=== PATIENT | female | born 1955 | race Caucasian/White ===

== ENCOUNTER 2017-09-15 13:51 | Outpatient (CLI) | payer MEDICAID ==
--- NOTE | 2017-09-15 15:06 | XRAY Report ---
LEFT HIP AND PELVIS: 09/15/2017 CLINICAL INDICATION: Pain. COMPARISON: 07/20/2015. FINDINGS: Frontal view of the hips and pelvis and frogleg lateral view of the left hip demonstrate a left hip replacement in place. There is no evidence of fracture or dislocation. No hardware complication is seen. IMPRESSION: STABLE APPEARANCE OF LEFT HIP REPLACEMENT. NO EVIDENCE OF FRACTURE OR HARDWARE COMPLICATION. TD: 09/15/2017 15:05
== END 2017-09-15 13:52 | disposition home or self-care (01) ==
LOC: DI.N 13:51
PROVIDERS: ATTEND Family Medicine
DX: M25.552 Pain in left hip (principal); Z96.642 Presence of left artificial hip joint

== ENCOUNTER 2018-09-15 10:06 | Emergency (ER) | payer MEDICAID ==
[2018-09-15 10:22] VITALS: BP 102/51
[2018-09-15] MEDS ORDERED: DEXAMETHASONE 10 MG/ML VIAL PO STA (11:47)
--- NOTE | 2018-09-15 11:49 | ED Physician Documentation ---
PD HPI URI - Stated complaint Stated Complaint: R EAR PAIN - Chief complaint Chief Complaint: Heent - History obtained from History obtained from: Patient - History of Present Illness Timing - onset: How many days ago (4) Timing duration: Days (4) Timing details: Gradual onset, Still present Associated symptoms: Fever, Chills, Ear pain, Nasal congestion, Rhinorrhea, Sinus pain, Dry cough Contributing factors: Sick contact Improves by: Rest, Medication Similar symptoms before: Diagnosis (sinusitis) Recently seen: Not recently seen - Additional information Additional information: 63-year-old female with a history of cerebral palsy has developed a cough and congestion she developed pain in the right maxillary sinus and pain in the right ear. She is had a little bit of a sore throat she is lost her voice. Review of Systems Constitutional: reports: Fever, Chills Eyes: denies: Decreased vision Ears: reports: Ear pain Nose: reports: Rhinorrhea / runny nose, Congestion, Sinus pressure / pain Throat: reports: Sore throat Cardiac: denies: Chest pain / pressure, Palpitations Respiratory: reports: Cough. 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 : None HEENT: None Psych: None Musculoskeletal: Other - Past Surgical History Past Surgical History: Yes Ortho: Hip replacement - Present Medications Home Medications: Ambulatory Orders Medication Instructions Recorded Confirmed Lidocaine Patch 5% [Lidoderm Patch] 1 patch TOP DAILY PRN #10 patch 06/25/16 06/26/16 oxyCODONE [Roxicodone] 5 mg PO Q4-6H PRN #7 tablet 06/25/16 06/26/16 Muscle Relaxer 06/26/16 diazePAM [Valium] 5 mg PO TID PRN #12 tablet 06/26/16 Amox/Clav 875/125 [Augmentin] 1 each PO Q12H #20 tablet 09/15/18 - Allergies Allergies/Adverse Reactions: Allergies Allergy/AdvReac Type Severity Reaction Status Date / Time codeine AdvReac Nausea Verified 01/28/14 09:14 - Social History Does the pt smoke?: No Smoking Status: Never smoker Does the pt drink ETOH?: No Does the pt have substance abuse?: No - Immunizations Immunizations are current?: Yes PD ED PE NORMAL - General General: Alert and oriented X 3, No acute distress, Well developed/nourished - HEENT HEENT: Atraumatic, PERRL, EOMI, Other (right TM is minimally centrally inflamed and the pharynx is with mild inflamation bilat. There is maxillary sinus point tenderness on the right side as the most dominant feature. ) - Neck Neck: Supple, no meningeal sign, No bony TTP - Cardiac Cardiac: RRR, No murmur - Respiratory Respiratory: No respiratory distress, Clear bilaterally - Abdomen Abdomen: Soft, Non tender - Derm Derm: Normal color, Warm and dry, No rash - Extremities Extremities: No deformity, No edema - Neuro Neuro: No motor deficit, No sensory deficit Eye Opening: Spontaneous Motor: Obeys Commands Verbal: Oriented GCS Score: 15 - Psych Psych: Normal mood, Normal affect Results - Vitals Vitals: Vital Signs - 24 hr 09/15/18 10:18 Temperature 36.7 C Heart Rate 117 H Respiratory 18 Rate Blood Pressure 102/51 L O2 Saturation 98 Oxygen O2 Source Room air PD MEDICAL DECISION MAKING - ED course Complexity details: considered differential, d/w patient ED course: 63-year-old female with cough and congestion has right maxillary sinusitis and she is administered dexamethasone 10 mg orally and we will put her on some Augmentin. Departure - Departure Disposition: 01 Home, Self Care Clinical Impression: Sinusitis Qualifiers: Sinusitis location: maxillary Chronicity: acute Recurrence: not specified as recurrent Qualified Code(s): J01.00 - Acute maxillary sinusitis, unspecified Condition: Stable Instructions: ED Sinusitis Abx Tx Follow-Up: Tien Ramon MD [Primary Care Provider] - Prescriptions: Amox/Clav 875/125 [Augmentin] 1 each PO Q12H #20 tablet
[2018-09-15] MEDS ORDERED: CHERRY SYRUP 10 ML UDC PO ONE (12:01)
== END 2018-09-15 12:01 | disposition home or self-care (01) ==
LOC: ED 10:06
DX: J01.00 Acute maxillary sinusitis, unspecified (principal); G80.9 Cerebral palsy, unspecified; Z96.649 Presence of unspecified artificial hip joint
CPT/HCPCS: 99283; A9270

== ENCOUNTER 2020-04-10 10:17 | Outpatient (CLI) | payer MEDICAID ==
--- NOTE | 2020-04-10 17:16 | XRAY Report ---
PROCEDURE: Hip BILAT INDICATIONS: BILATERAL HIP PAIN TECHNIQUE: 2 views of the right hip and left hip were acquired. COMPARISON: 07/20/2015. FINDINGS: Bones: Postsurgical changes compatible with left hip arthroplasty are stable compared to the prior e xam. Mild right hip osteoarthritic degenerative changes. No fractures or dislocations. No suspicious bony lesions. The visualized pelvic ring appears intact. Soft tissues: No suspicious soft tissue calcifications or masses. IMPRESSION: 1. No fracture. No acute osseous lesion. If there is continued clinical concern for pathology, then r epeat plain film radiographs (7-10 days) or advanced imaging (CT, MR, bone scan) should be considered for further evaluation.. 2. Status post left hip arthroplasty. 3. Mild right hip osteoarthritis. Reviewed by: Michelle Marshall MD, PhD on 04/10/2020 5:14 PM PDT Approved by: Michelle Marshall MD, PhD on 04/10/2020 5:14 PM PDT Station ID: [id number]
== END 2020-04-10 10:18 | disposition home or self-care (01) ==
LOC: DI.WCP 10:17
PROVIDERS: ATTEND Orthopaedic Surgery
DX: M16.11 Unilateral primary osteoarthritis, right hip (principal); Z96.642 Presence of left artificial hip joint
CPT/HCPCS: 73521

== ENCOUNTER 2020-04-14 12:55 | Outpatient (CLI) | payer MEDICAID ==
--- NOTE | 2020-04-15 09:54 | Mammography Report ---
BILATERAL DIGITAL SCREENING MAMMOGRAM: 04/14/2020 CLINICAL: Routine screening. Comparison is made to exam dated: 07/08/2014 mammogram - [facility]. The tissue o f both breasts is extremely dense, which lowers the sensitivity of mammography. No significant masses, calcifications, or other findings are seen in either breast. There has been no significant interval change. IMPRESSION: NEGATIVE There is no mammographic evidence of malignancy. A 1 year screening mammogram is recommended. This exam was interpreted at Station ID: [id number]. NOTE: For mammograms, a report in lay terms will be sent to the patient. Approximately 15% of breast malignancies will not be visualized mammographically. In the management of a palpable breast mass, a negative mammogram must not discourage biopsy of a clinically suspicious lesion. Electronically Signed By: Francesco diggs/zoila:04/14/2020 15:23:04 ACR BI-RADS Category 1: Negative 3341F PARENCHYMAL PATTERN: (VD) - The breast(s) demonstrate(s) extremely dense parenchyma, limiting the sen sitivity of mammography. BI-RADS CATEGORY: (1) - 1 RECOMMENDATION: (ANNUAL) - Recommend routine annual screening mammography. [id number] 1 year screening LATERALITY: (B)
== END 2020-04-14 12:56 | disposition home or self-care (01) ==
LOC: DI.N 12:55
DX: Z12.31 Encounter for screening mammogram for malignant neoplasm of breast (principal)
CPT/HCPCS: 77067

== ENCOUNTER 2020-07-06 12:42 | Outpatient (CLI) | payer MEDICARE, MEDICAID ==
--- NOTE | 2020-07-06 14:20 | MRI Report ---
PROCEDURE: Cervical Spine W/O INDICATIONS: SPASTIC GAIT TECHNIQUE: Noncontrast sagittal T1 spin echo and T2 fast spin echo, sagittal STIR, foraminal oblique sagittal T2 fast spin echo, and axial gradient echo or T2 fast spin echo through the cervical spine. COMPARISON: None. FINDINGS: Image quality: Degraded by severe motion artifact. Alignment and Curvature: Straightening of the normal lordotic curvature. Grade 1 anterolisthesis of C7 on T1 and T1 on T2 . Bone Marrow: Straightening of the normal lordotic curvature. Chronic osseous fusion of the C4, C5 an d C6 vertebral bodies. Scattered multilevel endplate spurring and diffuse facet arthropathy. Spinal Cord: Visualized spinal cord has normal size and signal. No cerebellar tonsillar herniation. Paraspinous Soft Tissues: No paravertebral masses. Prevertebral soft tissues are normal in thicknes s. C2-C3: Mild canal narrowing severe right foraminal stenosis with nerve root compression. Severe left foraminal stenosis with nerve root is not well visualized. Cannot exclude nerve root compression. C3-C4: Moderate to severe canal narrowing. Severe bilateral foraminal stenoses with nerve root comp ression. C4-C5: Mild canal narrowing although evaluation limited by motion artifact. Mild bilateral foraminal stenoses. C5-C6: Mild canal narrowing. Moderate left foraminal stenosis with nerve root compression. Mild righ t foraminal narrowing C6-C7: Mild canal narrowing severe bilateral foraminal stenoses with nerve root compression. C7-T1: Mild canal narrowing. Moderate to severe bilateral foraminal stenoses with nerve root dee barak IMPRESSION: Cervical spondylosis, and chronic osseous fusion of the C4-C6 vertebral bodies. Multilevel spondyloli stheses as above Moderate to severe C3-C4 canal narrowing. Diffuse bilateral foraminal stenoses as detailed by spinal level. Reviewed by: Bradley Hwang MD on 07/06/2020 2:18 PM PST Approved by: Bradley Hwang MD on 07/06/2020 2:18 PM PST Station ID: [id number]
== END 2020-07-06 12:43 | disposition home or self-care (01) ==
LOC: DI 12:42
PROVIDERS: ATTEND Psychiatry & Neurology Neurology
DX: R26.1 Paralytic gait (principal); M47.812 Spondylosis without myelopathy or radiculopathy, cervical region; M43.12 Spondylolisthesis, cervical region; M48.02 Spinal stenosis, cervical region
CPT/HCPCS: 72141

== ENCOUNTER 2020-09-07 11:56 | Outpatient (CLI) | payer MEDICARE, MEDICAID ==
[2020-09-07 12:33] LABS: CREATININE 0.7 mg/dL (0.4-1.0)
[2020-09-07] MEDS ORDERED: IOVERSOL 320 100 ML VIAL IVP ONE ×2 (12:42→14:11)
--- NOTE | 2020-09-07 15:52 | CT Report ---
PROCEDURE: ANGIO NECK W INDICATIONS: CERVICAL STENOSIS OF SPINAL CANAL CONTRAST: IV CONTRAST: Optiray 320 ml: 80 PO CONTRAST: *NO PO CONTRAST TECHNIQUE: After the administration of intravenous contrast, 1.5 mm axial sections acquired from the aortic arch to the [place]. Coronal 3-D maximum intensity projection (MIP) and/or volume rendering ref ormats were then performed. For radiation dose reduction, the following was used: automated exposur e control, adjustment of mA and/or kV according to patient size. COMPARISON: MRI cervical spine 06/28/2020 FINDINGS: Image quality: Excellent. The origins of the left and right common, internal and external carotid arteries demonstrate no areas of hemodynamically significant stenosis, vascular occlusion or aneurysmal dilation. Origin of the le ft vertebral artery and right vertebral artery demonstrate no areas of hemodynamically significant st enosis, vascular occlusion or aneurysmal dilation. Aortic arch demonstrates conventional anatomy. Wray ited, visualized portions of the subclavian vasculature are unremarkable. Bony fusion is present at C4-C6. There is grade 1 anterolisthesis of C6 on C7, C7 on T1. There is sev ere disc space narrowing at C3-4 with reactive endplate changes. Similar appearance is also noted at C7-T1, T1 and T2 as well as moderate at C6-7. There is multilevel spinal stenosis moderate to severe at C3-4, T1-T2, mild at C6-7, mild to moderate C7-T1, mild to moderate C6-7. There is increased signa l within the intramedullary portion of the cord at the level of C5-6. Multilevel foraminal narrowing is present severe at C2-3, C3-4, C6-7 and moderate to severe C7-T1. Multilevel uncovertebral hypertro phy are present. IMPRESSION: 1. Osseous fusion from C4 through C6. 2. Multilevel spinal stenosis most severe at C3-4 as above. 3. Increased signal is noted within the cord at the level of C5-6. This could be secondary to myeloma lacia from prior presurgical stenosis. 4. Multilevel foraminal narrowing secondary to uncovertebral arthropathy as above. 5. No areas of hemodynamically significant stenosis, vascular occlusion or aneurysmal dilation within the posterior circulation. The estimate of stenosis included in the report of the imaging study was calculated using the NASCET method Reviewed by: Kavita De La Rosa MD on 09/07/2020 3:51 PM PST Approved by: Kavita De La Rosa MD on 09/07/2020 3:51 PM PST Station ID: [id number]
== END 2020-09-07 11:57 | disposition home or self-care (01) ==
LOC: EDBD → DI 11:56
DX: M47.812 Spondylosis without myelopathy or radiculopathy, cervical region (principal); M48.02 Spinal stenosis, cervical region; M48.04 Spinal stenosis, thoracic region; M43.12 Spondylolisthesis, cervical region; M43.22 Fusion of spine, cervical region; D32.9 Benign neoplasm of meninges, unspecified
CPT/HCPCS: 36415; 70498; 82565; Q9967

== ENCOUNTER 2020-11-16 10:44 | Emergency (ER) | payer MEDICARE, MEDICAID ==
[2020-11-16 11:00] VITALS: BP 111/70
--- NOTE | 2020-11-16 11:39 | ED Physician Documentation ---
History of Present Illness - Stated complaint Stated Complaint: BUMP ON HEAD - Chief complaint Chief Complaint: Wound - Additonal information Additional information: 66 year old female Presents emergency department for evaluation of a lesion on the back of her posterior occiput. Began about 7 weeks ago after she had a spinal cord surgery in which she was required to wear a neck brace for a long period of time. Though she is no longer wearing the neck brace she has a 1 cm superficial area of erythema that continues to bother her. There has been no fevers fluctuance or drainage. 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: None : None HEENT: None Psych: None Musculoskeletal: Other - Past Surgical History Past Surgical History: Yes Ortho: Hip replacement - Present Medications Home Medications: Ambulatory Orders Medication Instructions Recorded Confirmed Lidocaine Patch 5% [Lidoderm Patch] 1 patch TOP DAILY PRN #10 patch 06/25/16 06/26/16 oxyCODONE [Roxicodone] 5 mg PO Q4-6H PRN #7 tablet 06/25/16 06/26/16 Muscle Relaxer 06/26/16 diazePAM [Valium] 5 mg PO TID PRN #12 tablet 06/26/16 Amox/Clav 875/125 [Augmentin] 1 each PO Q12H #20 tablet 09/15/18 - Allergies Allergies/Adverse Reactions: Allergies Allergy/AdvReac Type Severity Reaction Status Date / Time codeine AdvReac Nausea Verified 11/16/20 11:00 - Social History Does the pt smoke?: No Smoking Status: Never smoker Does the pt drink ETOH?: No Does the pt have substance abuse?: No - Immunizations Immunizations are current?: Yes PD ED PE EXPANDED - General General: No acute distress - Derm Derm: Other (superficial 1 cm cicumferential lesion mildly erythematous without drainage or fluctuance c/w pressure ulceration) Results - Vitals Vitals: Vital Signs - 24 hr 11/16/20 10:57 Temperature 36.0 C L Heart Rate 102 H Respiratory 20 Rate Blood Pressure 111/70 O2 Saturation 98 Oxygen O2 Source Room air PD MEDICAL DECISION MAKING - ED course Complexity details: reviewed results, re-evaluated patient, d/w patient, d/w family ED course: 66-year-old female presents emergency department for evaluation of a lesion on her posterior occiput that began 6 weeks ago after she had spinal surgery and is required to wear a neck brace for lengthy period of time. But she is no longer wearing the neck brace she does have a superficial area of erythema without fluctuance drainage or surrounding erythema induration. This is most consistent with a superficial pressure ulcer. Unfortunately this time no treatment is able to be remedied and less fluid collection develops, drainage begins or skin sloughing occurs. I encouraged patient and family to continue to keep this area free of pressure. Emergent return precautions discussed. Departure - Departure Disposition: 01 Home, Self Care Clinical Impression: Pressure ulcer caused by device Condition: Stable Record reviewed to determine appropriate education?: Yes Instructions: ED Pressure Injury, Pressure Ulcer Tx Clean Dress Comments: Unfortunately Bobbi does have a superficial pressure ulcer on the back of her head. Unfortunately there is no treatment that can be remedied at this time unless a fluid collection develops, it begins to drain, has an increase in the area of redness or the skin begins to slough or peel away. It is important that you continue to keep pressure off of this area. Please return to the emergency department with any further concerns of infection or failure of this ulceration to heal. It can take many many weeks in order for this to fully resolve
== END 2020-11-16 11:50 | disposition home or self-care (01) ==
LOC: ED 10:44
DX: L89.816 Pressure-induced deep tissue damage of head (principal)
CPT/HCPCS: 99282; 99283

== ENCOUNTER 2021-04-14 13:20 | Outpatient (CLI) | payer MEDICARE, MEDICAID ==
--- NOTE | 2021-04-15 11:47 | Mammography Report ---
BILATERAL DIGITAL SCREENING MAMMOGRAM 3D/2D: 04/14/2021 CLINICAL: Routine screening. Comparison is made to exams dated: 04/14/2020 mammogram, 07/08/2014 mammogram, and 06/27/2007 mammogr am - [facility]. The tissue of both breasts is extremely dense, which lowers the s ensitivity of mammography. No significant masses, calcifications, or other findings are seen in either breast. There has been no significant interval change. IMPRESSION: NEGATIVE There is no mammographic evidence of malignancy. A 1 year screening mammogram is recommended. This exam was interpreted at Station ID: [id number]. NOTE: For mammograms, a report in lay terms will be sent to the patient. Approximately 15% of breast malignancies will not be visualized mammographically. In the management of a palpable breast mass, a negative mammogram must not discourage biopsy of a clinically suspicious lesion. Electronically Signed By: Adalberto Pacheco M.D. aty/penrad:04/14/2021 16:52:13 ACR BI-RADS Category 1: Negative 3341F PARENCHYMAL PATTERN: (VD) - The breast(s) demonstrate(s) extremely dense parenchyma, limiting the sen sitivity of mammography. BI-RADS CATEGORY: (1) - 1 RECOMMENDATION: (ANNUAL) - Recommend routine annual screening mammography. [id number] 1 year screening LATERALITY: (B)
== END 2021-04-14 13:21 | disposition home or self-care (01) ==
LOC: DI.N 13:20
DX: Z12.31 Encounter for screening mammogram for malignant neoplasm of breast (principal)

== ENCOUNTER 2022-08-10 13:05 | Outpatient (CLI) | payer MEDICARE, MEDICAID ==
--- NOTE | 2022-08-10 16:41 | XRAY Report ---
PROCEDURE: Thoracic Spine 2 View INDICATIONS: CERVICAL STENOSIS TECHNIQUE: 2 views of the thoracic spine were acquired. COMPARISON: None. FINDINGS: Bones: Postsurgical changes are partially imaged in the cervical spine an upper thoracic. No acute fr actures or dislocations. No suspicious bony lesions. 12 pairs of ribs are noted, and appear intact where visualized. Mild spondylosis Soft tissues: No paravertebral stripe thickening. IMPRESSION: Posterior fixation hardware is seen in the lower cervical and upper thoracic spine. No acute osseous abnormality. Reviewed by: Francesco Cantu MD on 08/10/2022 4:39 PM PST Approved by: Francesco Cantu MD on 08/10/2022 4:39 PM PST Station ID: [id number]
--- NOTE | 2022-08-10 17:14 | XRAY Report ---
PROCEDURE: Cervical Spine 2 View INDICATIONS: CERVICAL STENOSIS TECHNIQUE: 3 view(s) of the cervical spine were acquired. COMPARISON: MRI cervical spine 07/06/2020 FINDINGS: Bones: No fractures or dislocations to the C7-T1 level. The lateral masses of C1 appear intact on t he odontoid view. No suspicious bony lesions. There is extensive posterior fixation rods are presen t from C1 C2-C6 and T1-T3. Hardware is intact. Osseous fusion is present within the cervical spine. M ultilevel foraminal narrowing is present. Soft tissues: No prevertebral soft tissue swelling. IMPRESSION: Extensive cervical fusion as above. Reviewed by: Kavita De La Rosa MD on 08/10/2022 5:13 PM PST Approved by: Kavita De La Rosa MD on 08/10/2022 5:13 PM PST Station ID: [id number]
== END 2022-08-10 13:06 | disposition home or self-care (01) ==
LOC: DI 13:05
PROVIDERS: ATTEND Physician Assistant
DX: G95.9 Disease of spinal cord, unspecified (principal); Z98.1 Arthrodesis status

== ENCOUNTER 2022-11-10 13:32 | Outpatient (CLI) | payer MEDICARE, MEDICAID ==
--- NOTE | 2022-11-11 10:17 | Mammography Report ---
BILATERAL DIGITAL SCREENING MAMMOGRAM 3D/2D: 11/10/2022 CLINICAL: Routine screening. Comparison is made to exams dated: 04/14/2021 mammogram, 04/14/2020 mammogram, and 07/08/2014 mammogra m - [facility]. Both breasts are extremely dense, which lowers the sensitivity of mammography (category d />75% gland ular tissue). There is a benign calcification in the left breast. No significant masses, calcifications, or other findings are seen in either breast. There has been no significant interval change. IMPRESSION: BENIGN There is no mammographic evidence of malignancy. A 1 year screening mammogram is recommended. Based on the Tyrer Cuzick model (a risk assessment model) the patients lifetime risk is 15.2% and he r 10 year risk is 8.1%. According to the ACR, ACS, and NCCN guidelines, an annual breast MRI exam shayy ng with mammogram is recommended if the patients lifetime risk is 20% or greater. This exam was interpreted at Station ID: [id number]. NOTE: For mammograms, a report in lay terms will be sent to the patient. Approximately 15% of breast malignancies will not be visualized mammographically. In the management of a palpable breast mass, a negative mammogram must not discourage biopsy of a clinically suspicious lesion. Electronically Signed By: Brinda aviles/zoila:11/10/2022 16:04:32 letter sent: No_Letter ACR BI-RADS Category 2: Benign Finding(s) 3342F PARENCHYMAL PATTERN: (VD) - The breast(s) demonstrate(s) extremely dense parenchyma, limiting the sen sitivity of mammography. BI-RADS CATEGORY: (2) - 2 Mammogram [id number] 1 year screening LATERALITY: (B)
== END 2022-11-10 13:33 | disposition home or self-care (01) ==
LOC: DI 13:32
DX: Z12.31 Encounter for screening mammogram for malignant neoplasm of breast (principal)

== ENCOUNTER 2022-11-10 13:35 | Outpatient (CLI) | payer MEDICARE, MEDICAID ==
--- NOTE | 2022-11-10 15:03 | DEXA Report ---
PROCEDURE: Dexa Spine and/or Hip INDICATIONS: POST MENOPAUSAL TECHNIQUE: Dual energy x-ray absorptiometry (DXA) was performed on a [employer] System. Regions measur ed are the AP Spine, femoral neck, and if needed forearm. COMPARISON: None. FINDINGS: Lumbar Spine: Bone Mineral Density 1.019 g/cm/cm,T score -1.6, mild to moderate osteopenia Left Femoral Neck: Bone Mineral Density 0.628 g/cm/cm, T score -3, osteoporosis Left Hip: Bone Mineral Density 0.630 g/cm/cm,T score -3.0, osteoporosis (T score greater or equal to -1.0: NORMAL) (T score from -1.1 to -2.4: OSTEOPENIA) (T score less than or equal to -2.5 to: OSTEOPOROSIS) Impression: Osteoporosis within the left femoral neck and hip. Patients with diagnosis of osteoporosis or osteopenia should have regular bone mineral density assess ment. For those eligible for Medicare, routine testing is allowed once every 2 years. Testing frequ ency can be increased for patients who have rapidly progressing disease or for those who are receivin g medical therapy to restore bone mass. Reviewed by: Kavita De La Rosa MD on 11/10/2022 3:02 PM PDT Approved by: Kavita De La Rosa MD on 11/10/2022 3:02 PM PDT Station ID: [id number]
== END 2022-11-10 13:36 | disposition home or self-care (01) ==
LOC: DI 13:35
PROVIDERS: ATTEND Nurse Practitioner
DX: M81.0 Age-related osteoporosis without current pathological fracture (principal); Z78.0 Asymptomatic menopausal state

== ENCOUNTER 2022-11-15 12:48 | Outpatient (CLI) | payer MEDICARE, MEDICAID ==
[2022-11-15 17:41] LABS: BASOPHILS % (AUTO) 0.5 %; EOSINOPHILS % (AUTO) 0.5 %; HCT - HEMATOCRIT 42.7 % (37.0-47.0); HGB - HEMOGLOBIN 13.1 g/dL (12.0-16.0); LYMPHOCYTES # (AUTO) 1.2 10^3/uL (1.5-3.5); LYMPHOCYTES % (AUTO) 20.4 %; MEAN CORPUSCULAR HEMOGLOBIN 28.5 pg (27.0-31.0); MEAN CORPUSCULAR HGB CONC 30.7 g/dL (32.0-36.0); MEAN CORPUSCULAR VOLUME 92.8 fL (81.0-99.0); MEAN PLATELET VOLUME 11.2 fL (7.9-10.8); MONOCYTES # (AUTO) 0.4 10^3/uL (0.0-1.0); MONOCYTES % (AUTO) 6.6 %; NEUTROPHILS # (AUTO) 4.1 10^3/uL (1.5-6.6); NEUTROPHILS % (AUTO) 71.8 %; PLT - PLATELET COUNT 291 10^3/uL (130-450); RED CELL DISTRIBUTION WIDTH 14.5 % (12.0-15.0); WHITE BLOOD COUNT 5.7 x10^3/uL (4.8-10.8)
[2022-11-15 18:10] LABS: ALBUMIN 3.9 g/dL (3.2-5.5); ALBUMIN/GLOBULIN RATIO 1.1 (1.0-2.2); ALKALINE PHOSPHATASE 51 IU/L (42-121); ALT ALANINE AMINOTRANSFERASE 14 IU/L (10-60); AST ASPARTATE AMINOTRANSFERASE 26 IU/L (10-42); BILIRUBIN,TOTAL 0.6 mg/dL (0.2-1.0); BUN - BLOOD UREA NITROGEN 11 mg/dL (6-20); CALCIUM 9.3 mg/dL (8.5-10.3); CARBON DIOXIDE - CO2 28 mmol/L (21-32); CHLORIDE 109 mmol/L (101-111); CHOL/HDL RATIO 2.5 (<4.4); CHOLESTEROL 187 mg/dL; CREATININE 0.6 mg/dL (0.4-1.0); CRP - C-REACTIVE PROTEIN < 1.0 mg/dL (0-1.0); GFR - MDRD 100 (>89); GLUCOSE 124 mg/dL (70-100); HDL CHOLESTEROL 75 mg/dL; LDL CHOLESTEROL,CALCULATED 99 mg/dL; LDL/HDL RATIO 1.3 (<4.4); POTASSIUM 3.7 mmol/L (3.5-5.0); SODIUM 143 mmol/L (135-145); TOTAL PROTEIN 7.4 g/dL (6.7-8.2); TRIGLYCERIDES 65 mg/dL; VLDL CHOLESTEROL 13 mg/dL
[2022-11-15 18:19] LABS: THYROID STIMULATING HORMONE 0.83 uIU/mL (0.34-5.60)
== END 2022-11-15 12:49 | disposition home or self-care (01) ==
LOC: LAB.N 12:48
PROVIDERS: ATTEND Nurse Practitioner
DX: R53.83 Other fatigue (principal); Z13.220 Encounter for screening for lipoid disorders
CPT/HCPCS: 36415; 80053; 80061; 82607; 83721; 84443; 85025; 85651; 86140

== ENCOUNTER 2023-03-09 08:00 | Outpatient (CLI) | payer MEDICARE, MEDICAID | END 2023-03-09 23:59 | disposition home or self-care (01) | LOC: LAB.N 08:00 | PROVIDERS: ATTEND Registered Nurse | DX: H92.01 Otalgia, right ear (principal); Z20.822 Contact with and (suspected) exposure to COVID-19 ==

== ENCOUNTER 2023-08-14 12:47 | Outpatient (CLI) | payer MEDICARE, MEDICAID ==
--- NOTE | 2023-08-14 16:36 | CT Report ---
PROCEDURE: Cervical Spine WO INDICATIONS: CERVICAL STENOSIS TECHNIQUE: Noncontrast 3 mm thick sections acquired from the skull base to the T4 level. Sagittal and coronal r eformats were then constructed. For radiation dose reduction, the following was used: automated exp osure control, adjustment of mA and/or kV according to patient size. COMPARISON: CT angiogram of the neck dated 09/07/2020. FINDINGS: Image quality: Excellent. Bones: Remote interbody fusion of C4-C6. Chronic anterolisthesis of C7 on T1 measuring approximately 6 mm. Trace chronic anterolisthesis of T1 on T2. Interval extensive multilevel posterior cervical dec ompression, extending from C3 through T1 T2, with bilateral posterior pro and pedicle screw fixation of the cervical thoracic spine, extending from C1 through T3. No evidence of hardware failure or loos ening. Severe left bony foraminal narrowing at C3-C4. There is probably moderate to severe bony dani inal narrowing at the left C5-C6 and C6-C7 levels. There is bilateral C7-T1 foraminal narrowing. Soft tissues: Prevertebral soft tissues are normal in thickness. No paravertebral hematomas. No ap ical pneumothoraces. IMPRESSION: 1. Extensive interval posterior decompressive laminectomy and posterior lateral pro and pedicle screw fixation. Surgical hardware intact with no evidence of hardware failure or loosening. 2. Multilevel left greater than right bony foraminal narrowing. Reviewed by: Giuseppe Westfall MD on 08/14/2023 4:35 PM PST Approved by: Giuseppe Westfall MD on 08/14/2023 4:35 PM PST Station ID: [id number]
== END 2023-08-14 12:48 | disposition home or self-care (01) ==
LOC: DI 12:47
PROVIDERS: ATTEND Physician Assistant
DX: M48.02 Spinal stenosis, cervical region (principal); M54.12 Radiculopathy, cervical region; Z48.811 Encounter for surgical aftercare following surgery on the nervous system; Z96.698 Presence of other orthopedic joint implants

== ENCOUNTER 2023-09-11 12:32 | Outpatient (CLI) | payer MEDICARE, MEDICAID ==
--- NOTE | 2023-09-11 16:40 | XRAY Report ---
PROCEDURE: Cervical Spine 2-3V INDICATIONS: CERVICALSTENOSIS, MYELOPATHY TECHNIQUE: 2 view(s) of the cervical spine were acquired. COMPARISON: None. FINDINGS: Bones: No fractures or dislocations to the T1 level. The lateral masses of C1 appear intact on the odontoid view. No suspicious bony lesions. Extensive posterior cervical laminectomy. Bilateral post erior lateral pro and pedicle screw fixation bridging C1-T2. No evidence of hardware failure or loose florian. Remote anterior interbody fusion from C3 through C6. Soft tissues: No prevertebral soft tissue swelling. IMPRESSION: Expected appearance of orthopedic surgical hardware. No acute cervical fracture or dislocation. Reviewed by: Giuseppe Westfall MD on 09/11/2023 4:38 PM PST Approved by: Giuseppe Westfall MD on 09/11/2023 4:38 PM PST Station ID: [id number]
--- NOTE | 2023-09-11 17:05 | XRAY Report ---
PROCEDURE: Thoracic Spine 2V INDICATIONS: CERVICALSTENOSIS, MYELOPATHY TECHNIQUE: 2 views of the thoracic spine were acquired. COMPARISON: Cervical spine plain films from the same date FINDINGS: Bones: Bilateral cervical thoracic fusion with posterior lateral pro and pedicle screw fixation invo lving the cervical spine and extending to involve T1 and T2. No evidence of hardware fracture or loos ening. No fractures or dislocations. No suspicious bony lesions. 12 pairs of ribs are noted, and ap pear intact where visualized. Soft tissues: No paravertebral stripe thickening. IMPRESSION: Expected appearance of cervical thoracic fusion hardware. No acute bony abnormality. No significant d egenerative change. Reviewed by: Giuseppe Westfall MD on 09/11/2023 5:04 PM PST Approved by: Giuseppe Westfall MD on 09/11/2023 5:04 PM PST Station ID: [id number]
== END 2023-09-11 12:33 | disposition home or self-care (01) ==
LOC: DI.N 12:32
PROVIDERS: ATTEND Physician Assistant
DX: M48.02 Spinal stenosis, cervical region (principal); G95.9 Disease of spinal cord, unspecified; Z98.1 Arthrodesis status

== ENCOUNTER 2023-11-08 13:35 | Outpatient (CLI) | payer MEDICARE, MEDICAID ==
--- NOTE | 2023-11-09 10:57 | Mammography Report ---
BILATERAL DIGITAL SCREENING MAMMOGRAM: 11/08/2023 CLINICAL: Routine screening. Comparison is made to exams dated: 11/10/2022 mammogram, 04/14/2021 mammogram, 04/14/2020 mammogram, mammogram, and 06/27/2007 mammogram - [facility]. Both breasts are heterogeneously dense, which may obscure small masses (category c / 51-75% glandular tissue). There is a benign calcification in the left breast. No significant masses, calcifications, or other findings are seen in either breast. There has been no significant interval change. IMPRESSION: BENIGN There is no mammographic evidence of malignancy. A 1 year screening mammogram is recommended. Based on the Tyrer Cuzick model (a risk assessment model) the patient's lifetime risk is 9.7% and her 10 year risk is 5.4%. According to the ACR, ACS, and NCCN guidelines, an annual breast MRI exam clarissa g with mammogram is recommended if the patient's lifetime risk is 20% or greater. This exam was interpreted at Station ID: [id number]. NOTE: For mammograms, a report in lay terms will be sent to the patient. Approximately 15% of breast malignancies will not be visualized mammographically. In the management of a palpable breast mass, a negative mammogram must not discourage biopsy of a clinically suspicious lesion. Electronically Signed By: Dulce vargas/zoila:11/08/2023 16:25:55 letter sent: No_Letter ACR BI-RADS Category 2: Benign Finding(s) 3342F PARENCHYMAL PATTERN: (D) - The breast(s) demonstrate(s) heterogeneously dense fibroglandular parmartiny ma. BI-RADS CATEGORY: (2) - 2 RECOMMENDATION: (ANNUAL) - Recommend routine annual screening mammography. [id number] 1 year screening LATERALITY: (B)
== END 2023-11-08 13:36 | disposition home or self-care (01) ==
LOC: DI.N 13:35
PROVIDERS: ATTEND Nurse Practitioner
DX: Z12.31 Encounter for screening mammogram for malignant neoplasm of breast (principal); R92.333 Mammographic heterogeneous density, bilateral breasts

== ENCOUNTER 2024-01-09 08:40 | Emergency (ER) | payer MEDICARE, MEDICAID ==
--- NOTE | 2024-01-09 09:31 | ED Physician Documentation ---
PD HPI CHEST PAIN - Stated complaint Stated Complaint: CHEST PX - Chief complaint Chief Complaint: Cardiac - History obtained from History obtained from: Patient - Additional information Additional information: Bobbi Faust is a 69-year-old female with a history of cerebral palsy who presents to the emergency department today after going into her primary care doctor's office with chest pain. She has had a cough for months now related to her allergies and she is coughing up thick white phlegm. She has been in to see the ear nose and throat doctor to have her sinuses checked. She is expecting to get some allergy testing done. She is unable to get off of her allergy pills in order to do the testing. Yesterday she coughed all day long and she is complaining of some chest pain worse with inspiration. She denies radiation of the pain she denies diaphoresis nausea or dyspnea associated with this. Review of Systems Constitutional: denies: Fever Eyes: denies: Decreased vision Ears: denies: Ear pain Nose: reports: Congestion. denies: Rhinorrhea / runny nose, Sinus pressure / pain Throat: denies: Sore throat Cardiac: reports: Chest pain / pressure. denies: Palpitations, Pedal edema, Calf pain Respiratory: reports: Cough GI: denies: Abdominal Pain, Nausea, Vomiting, Constipation, Diarrhea : denies: Dysuria, Frequency PD PAST MEDICAL HISTORY - Past Medical History Cardiovascular: None Respiratory: None Endocrine/Autoimmune: None GI: None VICE PRESIDENT OF CONSULTING SERVICES: None : None HEENT: None Psych: None Musculoskeletal: Other - Past Surgical History Past Surgical History: Yes Ortho: Hip replacement - Present Medications Home Medications: Ambulatory Orders Medication Instructions Recorded Confirmed Benzonatate [Tessalon] 100 - 200 mg PO TID PRN #30 cap 01/09/24 - Allergies Allergies/Adverse Reactions: Allergies Allergy/AdvReac Type Severity Reaction Status Date / Time codeine AdvReac Nausea Verified 01/09/24 09:06 - Social History Does the pt smoke?: No Smoking Status: Never smoker Does the pt drink ETOH?: No Does the pt have substance abuse?: No - Immunizations Immunizations are current?: Yes PD ED PE NORMAL - Vitals Vital signs reviewed: Yes (normal ) - General General: Alert and oriented X 3, No acute distress, Well developed/nourished, Other (69-year-old female with a deviated gaze and forced facial expression for communication works hard to get her words out but effectively communicates.) - HEENT HEENT: Atraumatic, Ears normal, Moist mucous membranes, Pharynx benign, Other (no sinus point tenderness) - Neck Neck: Supple, no meningeal sign, No bony TTP - Cardiac Cardiac: RRR, No murmur - Respiratory Respiratory: No respiratory distress, Clear bilaterally, Other (diminished clear breath sounds. minimal chest wall tenderness) - Abdomen Abdomen: Soft, Non tender - Back Back: No CVA TTP, No spinal TTP - Derm Derm: Normal color, Warm and dry, No rash - Extremities Extremities: No deformity, No edema - Neuro Neuro: Alert and oriented X 3, central processing tech 2-12 intact, No motor deficit, No sensory deficit, Other (speech is forceful ) Eye Opening: Spontaneous Motor: Obeys Commands Verbal: Oriented GCS Score: 15 - Psych Psych: Normal mood Results - Vitals Vitals: Vital Signs - 24 hr 01/09/24 09:01 Temperature 36.2 C L Heart Rate 66 Respiratory 17 Rate Blood Pressure 119/79 O2 Saturation 100 Oxygen O2 Source Room air - EKG (time done) 1001 EKG releavant findings:: EKG personally interpreted by author of this note. Relevant findings are: Rate: Rate (enter#) (67) Rhythm: NSR QRS: Low voltage Compare to prior EKG: Old EKG unavailable Computer interpretation: Agree with computer - Labs Labs: Laboratory Tests 01/09/24 01/09/24 01/09/24 09:04 09:04 09:07 WBC 6.5 RBC 4.63 Hgb 13.6 Hct 42.5 MCV 91.8 MCH 29.4 MCHC 32.0 RDW 14.4 Plt Count 263 MPV 10.8 Neut # (Auto) 4.8 Lymph # (Auto) 1.1 L Becker # (Auto) 0.4 Eos # (Auto) 0.0 Baso # (Auto) 0.0 Absolute Nucleated RBC 0.00 Nucleated RBC % 0.0 Sodium 140 Potassium 3.7 Chloride 105 Carbon Dioxide 30 Anion Gap 5.0 L BUN 11 Creatinine 0.6 Estimated GFR (MDRD) 99 Glucose 106 H Calcium 9.8 Total Bilirubin 0.4 AST 21 ALT 10 Alkaline Phosphatase 53 Troponin I High Sens < 2.3 L Total Protein 7.5 Albumin 4.6 Globulin 2.9 Albumin/Globulin Ratio 1.6 Lipase 14 - Rads (name of study) chest Relevant Findings:: Prelim report reviewed (Impression: No acute cardiopulmonary process.), EMP independent interpretation of test PD Medical Decision Making - ED course Complexity details: reviewed old records, reviewed results, re-evaluated patient, considered differential, d/w patient Reviewed Lab Results: We reviewed a complete blood count showing a normal white blood cell count normal hemoglobin hematocrit and platelets chemistry showed normal electrolytes normal kidney and liver function and a high-sensitivity troponin was less than 2.3. These laboratory studies are reassuring for absence of a coronary problem and do not indicate any other specific diagnosis. They are reassuring for the absence of a overwhelming infection. Combined with the patient's negative chest x-ray I believe the patient has strained her chest wall from coughing as she has thought. ED course: 69-year-old Bobbi Faust is strained her chest wall from a persistent cough she is being worked up for this cough by the ear nose and throat doctor who is treating her for allergy. Today we gave her a dose of dexamethasone and Toradol which has helped with her chest wall pain now and I suspect will help with her cough over the next 2 days. I have also E scribed some cough suppressant for the patient to prevent further damage to her chest wall. Departure - Departure Disposition: 01 Home, Self Care Clinical Impression: Chest wall pain Condition: Stable Instructions: ED Strain Chest Wall Follow-Up: Tyler Perry MD [Primary Care Provider] - Prescriptions: Benzonatate [Tessalon] 100 - 200 mg PO TID PRN #30 cap PRN Reason: Cough Comments: Bobbi, today it looks like the coughing you are having has caused some chest wal l fatigue and this is the reason for your chest pain. There is no evidence of a problem with a heart attack. We have provided you with some medication that should help with your chest wall pain today and that may help with the cough for about 2 to 3 days. This was a medication called dexamethasone. We have not solved your problem with allergies and I have E scribed some cough suppressant to the [facility] in [place] to prevent further chest wall injury. Follow-up with your ear nose and throat doctor as previously planned. Forms: PCP List
[2024-01-09 09:36] LABS: BASOPHILS % (AUTO) 0.3 %; EOSINOPHILS % (AUTO) 0.6 %; HCT - HEMATOCRIT 42.5 % (37.0-47.0); HGB - HEMOGLOBIN 13.6 g/dL (12.0-16.0); LYMPHOCYTES # (AUTO) 1.1 10^3/uL (1.5-3.5); LYMPHOCYTES % (AUTO) 17.3 %; MEAN CORPUSCULAR HEMOGLOBIN 29.4 pg (27.0-31.0); MEAN CORPUSCULAR VOLUME 91.8 fL (81.0-99.0); MEAN PLATELET VOLUME 10.8 fL (7.9-10.8); MONOCYTES # (AUTO) 0.4 10^3/uL (0.0-1.0); MONOCYTES % (AUTO) 6.8 %; NEUTROPHILS # (AUTO) 4.8 10^3/uL (1.5-6.6); NEUTROPHILS % (AUTO) 74.8 %; PLT - PLATELET COUNT 263 10^3/uL (130-450); RED BLOOD COUNT 4.63 10^6/uL (4.20-5.40); RED CELL DISTRIBUTION WIDTH 14.4 % (12.0-15.0); WHITE BLOOD COUNT 6.5 x10^3/uL (4.8-10.8)
[2024-01-09] MEDS: KETOROLAC 30 MG/ML VIAL IVP STA (09:39)
[2024-01-09] MEDS: DEXAMETHASONE 10 MG/ML VIAL IVP STA (09:39)
[2024-01-09 09:53] LABS: ALBUMIN 4.6 g/dL (3.2-5.5); ALBUMIN/GLOBULIN RATIO 1.6 (1.0-2.2); BILIRUBIN,TOTAL 0.4 mg/dL (0.2-1.0); CALCIUM 9.8 mg/dL (8.5-10.3); CREATININE 0.6 mg/dL (0.6-1.3); POTASSIUM 3.7 mmol/L (3.5-4.5); TOTAL PROTEIN 7.5 g/dL (6.4-8.9)
--- NOTE | 2024-01-09 09:56 | XRAY Report ---
PROCEDURE: Chest 1V INDICATIONS: chest pain TECHNIQUE: One view of the chest was acquired. COMPARISON: None. FINDINGS: Surgical changes and devices: Surgical fusion of the thoracal lumbar spine. Right distal clavicle re section. Lungs and pleura: No pleural effusions or pneumothorax. Lungs are clear. Mediastinum: Mediastinal contours appear normal. Heart size is normal. Bones and chest wall: No suspicious bony lesions. Overlying soft tissues appear unremarkable. IMPRESSION: No acute cardiopulmonary process. Reviewed by: Mika Hernandez MD on 01/09/2024 9:54 AM PDT Approved by: Mika Hernandez MD on 01/09/2024 9:54 AM PDT Station ID: [id number]
[2024-01-09 11:15] VITALS: BP 120/75; O2SAT 99
== END 2024-01-09 10:58 | disposition home or self-care (01) ==
LOC: ED 08:40
DX: R07.89 Other chest pain (principal); G80.9 Cerebral palsy, unspecified
CPT/HCPCS: 36415; 80053; 83690; 84484; 85025; 93005; 96374; 99284